=== PATIENT | male | born 1990 | race Caucasian/White ===

== ENCOUNTER 2016-07-25 02:14 | Emergency (ER) | payer SELFPAY ==
[2016-07-25 02:21] VITALS: PULSE 74; RESP 16; O2SAT 96
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
[2016-07-25 03:19] VITALS: BP 122/74; TEMP 98.1
== END 2016-07-25 03:16 | disposition home or self-care (01) ==
PROC: 0HQ1XZZ Repair Face Skin, External Approach (ICD-10-PCS; principal; 2016-07-25)
DX: S01.111A Laceration without foreign body of right eyelid and periocular area, initial encounter (principal); F17.200 Nicotine dependence, unspecified, uncomplicated; Y04.0XXA Assault by unarmed brawl or fight, initial encounter